=== PATIENT | male | born 1990 | race African-American/Black ===

== ENCOUNTER 2018-07-09 16:43 | Emergency (ER) | payer OTHER ==
[~2018-07-09] VITALS: Ht 182.9 cm; Wt 99.3 kg
--- NOTE | 2018-07-09 16:43 | NUR ---
PT [id number] FOR OTB. 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 RESP EVEN AND UNLABORED, NAD, PT ON MONITOR, VSS, PENDING ER PROVIDER EVAL
[2018-07-09 17:20] LABS: BASOPHILS % (AUTO) 0.3 % (0.0-2.0); EOSINOPHILS % (AUTO) 0.3 % (0.0-6.0); HEMATOCRIT 41 % (39-51); HEMOGLOBIN 13.7 g/dL (13.5-17.5); LYMPHOCYTES # (AUTO) 0.9 /CMM (0.8-4.8); LYMPHOCYTES % (AUTO) 12.7 % (20.0-44.0); MEAN CORPUSCULAR HGB CONC 33 g/dl (31.0-36.0); MEAN CORPUSCULAR VOLUME 86 fL (80-96); MONOCYTES # (AUTO) 0.4 /CMM (0.1-1.30); NEUTROPHILS % (AUTO) 81.7 % (43.0-81.0); PLATELET COUNT (AUTO) 280 /CMM (150-450); RED BLOOD CELL COUNT(AUTO) 4.81 MIL/uL (4.5-6.0); WHITE BLOOD COUNT (AUTO) 7.3 K/uL (4.3-11.0)
[2018-07-09] MEDS ORDERED: OLANZAPINE 10 MG VIAL IM ONE ×2 (17:20→17:30)
[2018-07-09 17:29] LABS: CALCIUM, SERUM 9.3 mg/dL (8.5-10.1); CARBON DIOXIDE 22 mmol/L (21-32); CHLORIDE 97 mmol/L (98-107); CREATININE 1.9 mg/dL (0.6-1.3); GLUCOSE 116 mg/dL (74-106); POTASSIUM 3.5 mmol/L (3.5-5.1); SODIUM SERUM 137 mmol/L (136-145); UREA NITROGEN, BLOOD 14 mg/dL (7-18)
[2018-07-09] MEDS ORDERED: IV NS 0.9% 1,000 ML BAG IV ONE (17:30)
[2018-07-09 17:35] LABS: ACETAMINOPHEN < 2 ug/ml (10-30); ALANINE AMINOTRANSFERASE 39 U/L (12-78); ALBUMIN 3.6 g/dL (3.4-5.0); ALCOHOL, BLOOD < 3 mg/dL (0-0); ALKALINE PHOSPHATASE 56 U/L (46-116); ASPARTATE AMINOTRANSFERASE 70 U/L (15-37); BILIRUBIN,DIRECT 0.2 mg/dL (0.0-0.2); BILIRUBIN,TOTAL 0.5 mg/dL (0.2-1.0); SALICYLATE 3.4 mg/dL (2.8-20.0)
[2018-07-09 18:11] LABS: APPEARANCE,URINE Slightly Cloudy (CLEAR); BILIRUBIN,URINE SMALL (NEGATIVE); BLOOD, URINE Small Ery/uL (NEGATIVE); COLOR,URINE Dark (YELLOW); KETONES,URINE Trace (NEGATIVE); LEUKOCYTE ESTERASE ,URINE Negative (NEGATIVE); NITRITE, URINE Negative (NEGATIVE); PROTEIN,URINE >=300 mg/dl (NEGATIVE); UGLUCOSE Negative (NEGATIVE); UROBILINOGEN,URINE 0.2 EU/dL (0.2)
--- NOTE | 2018-07-09 18:20 | NUR ---
PT UNABLE TO GIVE URINE SAMPLE AT THIS TIME, PER OZZIE SARMIENTO TO STRAIGHT CATH PT. URINE COLLECTED AND SENT TO LAB
[2018-07-09 18:21] LABS: BACTERIA,URINE Few /HPF (None Seen); SQUAMOUS EPITHELIAL CELL,UR Rare /HPF (None Seen); WBC,URINE 0-2 /HPF (0-3)
[2018-07-09 18:22] LABS: URINE AMORPHOUS URATE Many /HPF (None Seen)
[2018-07-09 18:39] VITALS: BP 109/62
[2018-07-09] MEDS ORDERED: HALOPERIDOL LACTATE INJ 5 MG/ML VIAL ONE (18:49)
--- NOTE | 2018-07-09 19:20 | NUR ---
PT IS MEDICALLY CLEAR FOR BOOKING, GIVEN [employer] OFFICER D/C INSTRUCTIONS. PER OFFICER, WAITING FOR BACKUP TO TRANSFER BACK TO BOOKING
[2018-07-09] MEDS ORDERED: LORAZEPAM INJ 2 MG/ML VIAL IM ONE (21:00)
[2018-07-09] MEDS ORDERED: LORAZEPAM INJ 2 MG/ML VIAL ONE (21:02)
--- NOTE | 2018-07-09 21:36 | NUR ---
PT TRANSPORTED BY [facility] AND [facility] TO [facility] [place], IN STABLE CONDITION, LEFT VIA GURNEY WITH PARAMEDICS,
== END 2018-07-09 21:38 ==
LOC: ER 19:49
DX: R45.6 Violent behavior (principal); R00.0 Tachycardia, unspecified; R80.9 Proteinuria, unspecified; F15.10 Other stimulant abuse, uncomplicated; F12.10 Cannabis abuse, uncomplicated; E86.0 Dehydration; R31.9 Hematuria, unspecified
CPT/HCPCS: 36415; 80048; 80076; 80305; 80329; 81001; 85025; 93005; 96360; 96372 ×2; 99284; A4606; G0480 ×2; J2060; J3490; J7030; Z7610; 81000-TC; J1630